=== PATIENT | female | born 1995 | race Caucasian/White ===

== ENCOUNTER 2018-01-14 20:16 | Emergency (ER) | payer BC, OTHER ==
[2018-01-14 20:50] VITALS: RESP 18
[2018-01-14] MEDS ORDERED: PROPARACAINE 0.5% OPHTH DROPS 15 ML BTL BOTH EYES STA (21:11)
--- NOTE | 2018-01-14 21:38 | ED ---
Eye Problem HPI - General Chief complaint: Eye Problems Stated complaint: eye pain Time Seen by Provider: 01/14/18 21:10 Source: patient Mode of arrival: ambulatory Limitations: no limitations - History of Present Illness Initial comments: This patient is 22-year-old woman who complains of left eye pain that developed on this evening. The patient states that she does wear contact lenses and she did sleep with the man, but states that this is usual practice for her. She did take the contact lenses out due to the irritation. chief complaint: eye pain, eye redness -: hour(s) Onset Description: sudden Location: left eye Place: home If Injury: none Eye Symptoms: redness, pain Severity: moderate If Pain, Quality: sharp Consistency: constant Associated Symptoms: none Treatments Prior to Arrival: removed contact lens - Related Data Home Medications Medication Instructions Recorded Confirmed Albuterol Inhaler [Ventolin Hfa 1 - 2 puff INHALATION RT-Q6H PRN 01/14/18 Inhaler] Dextroamphetamine/Amphetamine 30 mg PO QAM 01/14/18 01/14/18 [Adderall Xr] Ibuprofen [Motrin Ib] 400 mg PO Q6HR PRN 01/14/18 01/14/18 diphenhydrAMINE HCL [Benadryl] 50 mg PO TID PRN 01/14/18 01/14/18 Allergies Allergy/AdvReac Type Severity Reaction Status Date / Time No Known Allergies Allergy Verified 01/14/18 20:58 Review of Systems ROS Statement: Those systems with pertinent positive or pertinent negative responses have been documented in the HPI. ROS Other: All systems not noted in ROS Statement are negative. Constitutional: Denies: fever, chills Eyes: Reports: eye pain, eye discharge. Denies: vision change ENT: Denies: ear pain, congestion Respiratory: Denies: cough, dyspnea Gastrointestinal: Denies: nausea, vomiting Neurological: Denies: headache Past Medical History Past Medical History: No Reported History History of Any Multi-Drug Resistant Organisms: None Reported Past Surgical History: No Surgical Hx Reported Past Psychological History: Depression Smoking Status: Never smoker Past Alcohol Use History: Occasional Past Drug Use History: None Reported General Exam Limitations: no limitations General appearance: alert, in no apparent distress Head exam: Present: atraumatic, normocephalic Eye exam: Present: PERRL, EOMI, conjunctival injection. Absent: scleral icterus , nystagmus, periorbital swelling, periorbital tenderness Pupils: Present: other (Slit lamp exam, with staining there is corneal abrasion. There is no ulceration.) Expanded Eyelids: Normal Inspection: Right Pupils: Regular, Round: Bilateral, Reactive: Bilateral Sclera/Conjunctival: Injection: Left Anterior chamber: Normal Inspection: Bilateral IOP (L) in mmH IOP measured with: other (iCare device) ENT exam: Present: normal oropharynx Course Vital Signs 01/14/18 20:45 Temperature 98.5 F Pulse Rate 90 Respiratory 18 Rate Blood Pressure 128/76 O2 Sat by Pulse 100 Oximetry Disposition Clinical Impression: Corneal abrasion Disposition: HOME SELF-CARE Condition: Good Instructions: Abrasion (ED) Is patient prescribed a controlled substance at d/c from ED?: No Referrals: Rogelio Chanel DO [Primary Care Provider] - 1-2 days Lilly Moreno MD [STAFF PHYSICIAN] - 1-2 days
[2018-01-14] MEDS ORDERED: CIPROFLOXACIN 0.3% OPHTH OINT 3.5 GM TUBE LEFT EYE STA (21:49)
[2018-01-14 22:57] VITALS: BP 117/65; PULSE 65; TEMP 97.8
== END 2018-01-14 22:15 | disposition home or self-care (01) ==
LOC: EC 20:16
DX: S05.02XA Injury of conjunctiva and corneal abrasion without foreign body, left eye, initial encounter (principal); F32.9 Major depressive disorder, single episode, unspecified; Z79.899 Other long term (current) drug therapy
CPT/HCPCS: 99283

== ENCOUNTER → 2022-03-14 | Outpatient (CLI) | payer BC ==
[2022-03-14 10:31] LABS: Partial Thromboplastin Time 27.6 sec (22.0-30.0); Prothrombin Time 10.5 sec (9.0-12.0)
[2022-03-14 15:18] LABS: Basophils # (A) 0.05 X 10*3/uL (0.00-0.10); Eosinophils # (A) 0.11 X 10*3/uL (0.04-0.35); Eosinophils % (A) 2.2 %; HCT 44.8 % (37.2-46.3); HGB 13.9 g/dL (12.0-15.0); Immature Grans, Automated 0.4 %; Lymphocytes # (A) 1.79 X 10*3/uL (0.90-5.00); Lymphocytes % (A) 35.2 %; MCH 26.1 pg (27.0-32.0); MCV 84.1 fL (80.0-97.0); Mean Platelet Volume 11.7 fL (9.5-12.2); Monocytes # (A) 0.53 X 10*3/uL (0.20-1.00); Monocytes % (A) 10.4 %; NRBC Per 100 WBC 0 /100 WBCS (0.0-0.0); Neutrophils # (A) 2.58 X 10*3/uL (1.80-7.70); Neutrophils % (A) 50.8 %; Platelet Count 237 X 10*3/uL (140-440); RBC 5.33 X 10*6/uL (4.10-5.20); RDW 13.8 % (11.5-14.5); WBC 5.08 X 10*3/uL (4.50-10.00)
== END | disposition home or self-care (01) ==
LOC: LABWHC1 09:13
PROVIDERS: ATTEND Nurse Practitioner Family
DX: R04.0 Epistaxis (principal)
CPT/HCPCS: 36415; 85025; 85384; 85610; 85730

== ENCOUNTER 2022-04-30 06:15 | Day surgery (SDC) | payer BC ==
[2022-04-25 12:03] VITALS: BMI 33.8
[~2022-04-30 06:15] MED LIST: FAMOTIDINE 20 MG/2 ML VIAL IV PRN; ONDANSETRON 4 MG/2 ML VIAL IVP PRN
[2022-04-30] MEDS ORDERED: LIDOCAINE 1% (10MG/ML) FOR IV START INTRADERMA PRN (06:21)
[2022-04-30] MEDS ORDERED: DEXAMETHASONE SOD PHOSPHATE 4 MG/ML 1 ML VIAL IV ONE (06:21)
[2022-04-30] MEDS ORDERED: ONDANSETRON 4 MG/2 ML VIAL IVP ONE (06:21)
[2022-04-30] MEDS ORDERED: LACTATED RINGERS 1,000 ML IV SCH (06:21)
[2022-04-30 06:58] VITALS: RESP 16
[2022-04-30] MEDS ORDERED: METOCLOPRAMIDE 5 MG/ML 2 ML VIAL IVP PRN (07:00)
[2022-04-30] MEDS ORDERED: HYDROmorphone 0.5 MG/0.5 ML SYRINGE IVP PRN (07:00)
[2022-04-30] MEDS: OXYMETAZOLINE 0.05% NASL SPRAY 1 SPRAY BOTTLE EA NOSTRIL PRN ×5 (07:10→07:30)
[2022-04-30] MEDS ORDERED: PROPOFOL 10 MG/ML 20 ML VIAL IV ONE (07:35)
[2022-04-30] MEDS ORDERED: SUCCINYLCHOLINE CHLORIDE 200 MG/10 ML VIAL IV ONE (07:35)
[2022-04-30] MEDS ORDERED: MIDAZOLAM 2 MG/2 ML VIAL ONE (07:35)
[2022-04-30] MEDS ORDERED: fentaNYL (PF) 50 MCG/ML 2 ML AMP ONE (07:35)
[2022-04-30] MEDS ORDERED: LIDOCAINE 2% INJ 20 MG/ML (2 ML VIAL) ONE (07:35)
[2022-04-30] MEDS ORDERED: LIDOCAINE 1%-EPI 1:100,000 20 ML VIAL SUBMUCOSAL ONE ×2 (07:50)
[2022-04-30] MEDS ORDERED: BACITRACIN ZINC 500 UNIT/GM OINT 28.4 GM TUBE TOPICAL ONE (07:56)
--- NOTE | 2022-04-30 07:58 | P.OP ---
Date of Procedure: 04/30/22 Preoperative Diagnosis: Recurrent left-sided epistaxis Postoperative Diagnosis: Same Procedure(s) Performed: Bilateral nasal endoscopy with selective cauterization left nasal septum Anesthesia: MAIKOL Surgeon: Ross Guaman Estimated Blood Loss (ml): 0 Pathology: none sent Condition: stable Disposition: PACU Indications for Procedure: This is a 26-year-old white female whose had difficulties with recurrent left- sided epistaxis. This was recorded cautery the office this was no longer effective Operative Findings: Prominent vessel right anterior septum with mild excoriation Description of Procedure: The patient was brought in the operative suite and placed in a supine position. The patient underwent induction of general anesthesia with oral endotracheal intubation without difficulty. The patient was prepped and draped in usual aseptic fashion. Bilateral nasal endoscopy was performed. There was a prominent vessel left anterior septum and no other suspicious areas. This was cauterized with suction cautery to the level of the submucosa with perichondrium left intact. Excellent hemostasis noted. Bacitracin ointment was placed. The patient was allowed to emerge from general anesthesia having tolerated procedure well was extubated in the operating suite and transferred to postop recovery area in satisfactory condition.
[2022-04-30 08:17] VITALS: TEMP 96.8
[2022-04-30 09:26] VITALS: BP 115/78; PULSE 74
== END 2022-04-30 09:27 | disposition home or self-care (01) ==
LOC: OR 06:15
PROVIDERS: ATTEND Otolaryngology
DX: S00.31XA Abrasion of nose, initial encounter (principal); J45.909 Unspecified asthma, uncomplicated; G43.909 Migraine, unspecified, not intractable, without status migrainosus; K21.9 Gastro-esophageal reflux disease without esophagitis; F10.20 Alcohol dependence, uncomplicated; Z79.811 Long term (current) use of aromatase inhibitors; Z79.891 Long term (current) use of opiate analgesic; Z79.899 Other long term (current) drug therapy; Z80.1 Family history of malignant neoplasm of trachea, bronchus and lung
CPT/HCPCS: 81025; 84703; 31238; J2250; J0330; J1100; J0690; J2405; J3010; J2704; J2001

== ENCOUNTER → 2023-11-12 | Outpatient (CLI) | payer BC | END | disposition home or self-care (01) | LOC: LABPRL 10:10 | PROVIDERS: ATTEND Nurse Practitioner Family | DX: R73.01 Impaired fasting glucose (principal) | CPT/HCPCS: 83036 ==